=== PATIENT | male | born 1950 | race Caucasian/White ===

== ENCOUNTER 2021-01-17 07:59 | Observation (INO) ==
[2021-01-17] MEDS ORDERED: 0.9 % Sodium Chloride 500 ML IVC ONE (08:00)
[2021-01-17] MEDS ORDERED: Aspirin 81 MG TAB.CHEW PO ONE (08:00)
[2021-01-17] MEDS ORDERED: Ondansetron 4 MG/2 ML VIAL IVP STA (08:01)
[2021-01-17] MEDS ORDERED: Isovue-370 500 ML BOTTLE IVP ONE ×2 (08:05→12:48)
[2021-01-17 09:00] LABS: Basophils % 0.4 %; Hemoglobin 18.5 g/dL (12.9-16.9); Red Cell Distribution Width 13.2 % (11.5-14.5)
[2021-01-17 09:01] LABS: Eosinophils % 0.5 %; Hematocrit 54.2 % (37.5-50.1); Immature Granulocytes % 0.3 % (0-4); Immature Platelets 8.8 % (1.1-6.1); Lymphocytes # 3.1 K/mcL (0.6-4.6); Lymphocytes % 38.7 %; Mean Corpuscular HGB Conc 34.1 g/dL (31.6-35.5); Mean Corpuscular Hemoglobin 31.3 pg (28.0-33.3); Mean Corpuscular Volume 91.7 fL (83.0-100.0); Monocytes # 0.7 K/mcL (0.0-1.3); Monocytes % 8.6 %; Neutrophils # 4.1 K/mcL (1.6-8.9); Platelet Count 144 K/mcL (140-400); Red Blood Count 5.91 M/mcL (4.19-5.50); Segmented Neutrophils % 51.5 %
[2021-01-17 09:14] LABS: Alanine Aminotransferase 32 Units/L (7-52); Albumin 4.4 g/dL (3.5-5.7); Albumin/Globulin Ratio 1.6 (1.1-2.2); Alkaline Phosphatase 45 Units/L (34-104); Aspartate Amino Transferase 22 Units/L (13-39); BUN/Creatinine Ratio 17 (6-26); Bilirubin,Direct 0.1 mg/dL (0.0-0.2); Bilirubin,Indirect 0.5 mg/dL (0.0-1.0); Bilirubin,Total 0.6 mg/dL (0.3-1.0); Blood Urea Nitrogen 20 mg/dL (8-23); Calcium 9.8 mg/dL (8.6-10.3); Carbon Dioxide 28 mEq/L (23-29); Chloride 99 mEq/L (98-107); Globulin 2.8 g/dL (2.4-3.5); Glucose 171 mg/dL (70-105); Lipase 34 Units/L (11-82); Osmolality,Calculated 287 (280-300); Potassium 4.5 mEq/L (3.5-5.1); Sodium 135 mEq/L (136-145); Total Protein 7.2 g/dL (6.4-8.9); Troponin I < 0.03 ng/mL (< 0.04); eGFR For African Americans > 60 (> 60); eGFR For Non-African Americans > 60 (> 60)
[2021-01-17 09:43] LABS: Bilirubin,Urine Negative (Negative); Blood,Urine Negative (Negative); Clarity,Urine Clear (Clear); Color,Urine Light-Yellow (Yellow); Glucose,Urine (UA) >=1000 mg/dL (Normal); Ketones,Urine Negative (Negative); Leukocyte Esterase,Urine Negative (Negative); Nitrite,Urine Negative (Negative); PH,Urine 6.5 pH Units (5.0-8.0); Protein,Urine Negative (Neg-Trace); Specific Gravity,Urine > 1.030 (1.010-1.025); Squamous Epithelial Cell,Urine Few per hpf (None-Few); Urobilinogen,Urine Normal (Normal); WBC,Urine 0-3 per hpf (0-3)
[2021-01-17 09:45] LABS: Prothrombin Time 11.5 Seconds (9.4-12.1)
[2021-01-17 09:48] LABS: Activated Partial Thrombo Time 28.4 Seconds (26.0-36.0)
[2021-01-17] MEDS ORDERED: *HR* OxyCODONE Immed Rel 5 MG TABLET PO PRN (11:08)
[2021-01-17] MEDS ORDERED: Naloxone 0.4 MG/ML INJ IVP PRN (11:08)
[2021-01-17] MEDS ORDERED: *HR* HYDROcodone/Acet 5/325 mg TABLET PO PRN (11:08)
[2021-01-17] MEDS ORDERED: Acetaminophen 325 MG TABLET PO PRN (11:08)
[2021-01-17] MEDS ORDERED: Melatonin 3 MG TABLET PO PRN (11:08)
[2021-01-17] MEDS ORDERED: Ondansetron 4 MG/2 ML VIAL IVP PRN (11:08)
[2021-01-17] MEDS ORDERED: Perflutren Lipid Microsphere 1.3 ML in 0.9 % Sodium Chloride 8.7 ML IVP PRN (11:14)
[2021-01-17] MEDS ORDERED: *HR* LORazepam 2 MG/ML VIAL IVP ONE (13:26)
[2021-01-17 15:14] LABS: Estimated Average Glucose 134 mg/dl; Hemoglobin A1C 6.3 %
[2021-01-17 15:22] LABS: Chol/HDL Ratio 5.9 (0-4.9)
[2021-01-17 15:25] LABS: Troponin I < 0.03 ng/mL (< 0.04)
[2021-01-17 15:38] LABS: Thyroid Stimulating Hormone 0.988 mcIU/mL (0.340-5.600)
[2021-01-17] MEDS ORDERED: Dextrose Gel 15 GM/37.5 ML TUBE PO PRN ×2 (17:23)
[2021-01-17] MEDS ORDERED: D5% in Water 1,000 ML IVC PRN (17:23)
[2021-01-17] MEDS ORDERED: *HR* Dextrose 50 % in Water (Vial) 50 ML VIAL IVP PRN (17:23)
[2021-01-17] MEDS: polyethylene glycoL 3350 17 GM POWD.PACK PO SCH (18:07)
[2021-01-17 18:14] LABS: Estimated Average Glucose 134 mg/dl; Hemoglobin A1C 6.3 %
[2021-01-17] MEDS: Sennosides/Docusate Sodium TABLET PO SCH (19:36)
[2021-01-18 01:25] LABS: Mean Platelet Volume 11.4 fL (9.4-12.4); Red Cell Distribution Width 13.2 % (11.5-14.5)
[2021-01-18 01:27] LABS: Hematocrit 52.7 % (37.5-50.1); Hemoglobin 18.1 g/dL (12.9-16.9); Immature Platelets 9.2 % (1.1-6.1); Mean Corpuscular HGB Conc 34.3 g/dL (31.6-35.5); Mean Corpuscular Hemoglobin 31.3 pg (28.0-33.3); Red Blood Count 5.79 M/mcL (4.19-5.50); White Blood Count 10.1 K/mcL (4.3-11.1)
[2021-01-18 01:36] LABS: INR 1.1; Prothrombin Time 12.2 Seconds (9.4-12.1)
[2021-01-18 01:40] LABS: BUN/Creatinine Ratio 21 (6-26); Blood Urea Nitrogen 19 mg/dL (8-23); Calcium 9.1 mg/dL (8.6-10.3); Carbon Dioxide 25 mEq/L (23-29); Chloride 102 mEq/L (98-107); Glucose 107 mg/dL (70-105); Magnesium 2.2 mg/dL (1.6-2.6); Osmolality,Calculated 283 (280-300); Phosphorous 3.5 mg/dL (2.7-4.5); Potassium 4.1 mEq/L (3.5-5.1); Sodium 135 mEq/L (136-145); eGFR For African Americans > 60 (> 60); eGFR For Non-African Americans > 60 (> 60)
[2021-01-18 01:41] LABS: Troponin I < 0.03 ng/mL (< 0.04)
[2021-01-18] MEDS: *HR* Enoxaparin 40 MG/0.4 ML SYRINGE SQ SCH (05:53)
[2021-01-18] MEDS: Insulin LISPRO 300 UNITS/3 ML VIAL SUBQ SCH ×3 (07:30→16:59)
[2021-01-18] MEDS: LIPASE PO SCH ×3 (07:55→15:26)
[2021-01-18] MEDS: PROTEASE PO SCH ×3 (07:55→15:26)
[2021-01-18] MEDS: AMYLASE PO SCH ×3 (07:55→15:26)
[2021-01-18] MEDS: polyethylene glycoL 3350 17 GM POWD.PACK PO SCH (07:56)
[2021-01-18] MEDS: Aspirin 81 MG TAB.CHEW PO SCH ×2 (07:56→11:29)
[2021-01-18] MEDS: Sennosides/Docusate Sodium TABLET PO SCH ×2 (07:56→20:27)
[2021-01-18] MEDS: Multivit/Ca/Min/Fe/FA 1 TAB TABLET PO SCH (07:56)
[2021-01-18] MEDS ORDERED: Regadenoson 0.4 MG/5 ML SYRINGE IVP ONE (08:31)
[2021-01-18] MEDS: ALPRAZolam 0.5 MG TABLET PO PRN (20:31)
[2021-01-19] MEDS: *HR* Enoxaparin 40 MG/0.4 ML SYRINGE SQ SCH (05:02)
[2021-01-19] MEDS: Aspirin 81 MG TAB.CHEW PO SCH (08:30)
[2021-01-19] MEDS: polyethylene glycoL 3350 17 GM POWD.PACK PO SCH (08:40)
[2021-01-19] MEDS: Sennosides/Docusate Sodium TABLET PO SCH ×2 (08:40→20:57)
[2021-01-19] MEDS: LIPASE PO SCH ×3 (09:07→17:12)
[2021-01-19] MEDS: AMYLASE PO SCH ×3 (09:07→17:12)
[2021-01-19] MEDS: Multivit/Ca/Min/Fe/FA 1 TAB TABLET PO SCH (09:07)
[2021-01-19] MEDS: PROTEASE PO SCH ×3 (09:07→17:12)
[2021-01-19] MEDS: Insulin LISPRO 300 UNITS/3 ML VIAL SUBQ SCH ×3 (09:07→17:11)
[2021-01-19 09:18] LABS: Basophils % 0.7 %; Red Cell Distribution Width 13.2 % (11.5-14.5)
[2021-01-19 09:20] LABS: Basophils # 0.1 K/mcL (0.0-0.2); Eosinophils % 0.6 %; Hematocrit 53.5 % (37.5-50.1); Hemoglobin 18.6 g/dL (12.9-16.9); Immature Granulocytes % 0.4 % (0-4); Immature Platelets 8.1 % (1.1-6.1); Lymphocytes # 2.4 K/mcL (0.6-4.6); Lymphocytes % 33.3 %; Mean Corpuscular HGB Conc 34.8 g/dL (31.6-35.5); Mean Corpuscular Hemoglobin 31.8 pg (28.0-33.3); Mean Corpuscular Volume 91.6 fL (83.0-100.0); Mean Platelet Volume 11.3 fL (9.4-12.4); Monocytes # 0.6 K/mcL (0.0-1.3); Monocytes % 7.6 %; Platelet Count 132 K/mcL (140-400); Red Blood Count 5.84 M/mcL (4.19-5.50); Segmented Neutrophils % 57.4 %; White Blood Count 7.2 K/mcL (4.3-11.1)
[2021-01-19 09:26] LABS: Neutrophils # 4.1 K/mcL (1.6-8.9)
[2021-01-19 09:31] LABS: BUN/Creatinine Ratio 21 (6-26); Blood Urea Nitrogen 20 mg/dL (8-23); Calcium 8.9 mg/dL (8.6-10.3); Carbon Dioxide 26 mEq/L (23-29); Chloride 103 mEq/L (98-107); Glucose 129 mg/dL (70-105); Osmolality,Calculated 286 (280-300); Phosphorous 2.2 mg/dL (2.7-4.5); Sodium 136 mEq/L (136-145); eGFR For African Americans > 60 (> 60); eGFR For Non-African Americans > 60 (> 60)
[2021-01-19] MEDS ORDERED: 0.9 % Sodium Chloride 2,000 ML ONE (11:48)
[2021-01-19] MEDS ORDERED: *HR* Heparin 10,000 UNIT/10 ML VIAL ONE (11:48)
[2021-01-19] MEDS ORDERED: ISOVUE-370 200 ML INFUS..BTL ONE ×2 (11:48→12:34)
[2021-01-19] MEDS ORDERED: Heparin 1,000 UNITS/500 mL 500 ML ONE (11:48)
[2021-01-19] MEDS ORDERED: Nitroglycerin 1,000 MCG/5 ML VIAL IV ONE (11:49)
[2021-01-19] MEDS ORDERED: *HR* FentaNYL (PF) 100 MCG/2 ML VIAL ONE (12:06)
[2021-01-19] MEDS ORDERED: *HR* Midazolam HCl 2 MG/2 ML VIAL ONE (12:06)
[2021-01-19 19:32] VITALS: O2SAT 97
[2021-01-19] MEDS: ALPRAZolam 0.5 MG TABLET PO PRN (20:57)
[2021-01-19 22:22] LABS: Influenza A PCR Negative (Negative); Influenza B PCR Negative (Negative); Resp. Syncytial Virus PCR Negative (Negative)
[2021-01-19 23:34] VITALS: BP 112/63; PULSE 54; TEMP 97.7
[2021-01-20 00:03] LABS: SARS-CoV-2 by PCR (In House) Negative (Negative)
[2021-01-20] MEDS ORDERED: Dextrose 50 % in Water (Vial) 30 ML, Sodium Bicarbonate 20 MEQ, Potassium Chloride 15 M... TH ONE (08:45)
[2021-01-20] MEDS ORDERED: Heparin 15,000 UNIT in 0.9 % Sodium Chloride 500 ML IV ONE (08:45)
[2021-01-20] MEDS ORDERED: Dextrose 50 % in Water (Vial) 30 ML, Sodium Bicarbonate 20 MEQ, Lidocaine 1% 5 ML, Insu... TH ONE ×3 (08:45)
[2021-01-20] MEDS ORDERED: Norepinephrine 4 MG in 0.9 % Sodium Chloride 250 ML IVC PRN (08:45)
== END 2021-01-20 02:20 | disposition other institution (70) ==
LOC: EMEROOARM 07:59 → 3BNU 07:59 → SUATTDRO 12:22 → 3BNU 13:16
PROVIDERS: ADMIT Internal Medicine; ATTEND Internal Medicine